=== PATIENT | female | born 1935 | race Caucasian/White ===

== ENCOUNTER → 2022-11-17 12:10 | Outpatient (CLI) | payer MEDICARE, SELFPAY ==
--- NOTE | ~2022-11-17 | XR_ITS ---
Left Knee Technique: AP, lateral, and sunrise views were obtained. Clinical History: Pain Findings: No fracture or dislocation is seen. There is advanced degenerative change of the lateral co mpartment, with joint space narrowing and articular surface remodeling. Moderate tricompartmental ost eophyte formation present. There are probable small loose bodies in the suprapatellar pouch. Possible additional loose bodies posteriorly in the joint. No joint effusion is seen. 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 Probable intra-articular loose bodies. Reviewed, dictated and finalized at location M. COVERER Impression: Moderate to advanced tricompartmental osteoarthritis, worst in the lateral comp artment. Probable intra-articular loose bodies.
--- NOTE | ~2022-11-17 | XR_ITS ---
Right Knee Technique: AP, lateral, and sunrise views were obtained. Clinical History: Pain Findings: No fracture or dislocation is seen. There is severe degenerative change of the lateral comp artment, with marked joint space narrowing and articular surface remodeling. Moderate patellofemoral and lateral joint line osteophytes are present. There is minimal degenerative change of the medial co mpartment. Soft tissues are unremarkable. No joint effusion is seen. Impression: Severe osteoarthritis of the lateral compartment, as detailed above. Moderate to severe patellofemoral compartment degenerative change. Minimal degenerative change of the medial compartment. Reviewed, dictated and finalized at location M. ER ENGINEER HELPER Impression: Severe osteoarthritis of the lateral compartment, as detailed above. Moderate to severe patellofemoral compartment degenerative change. Minimal degenerative change of the medial compartment.
== END ==
PROVIDERS: PCP Internal Medicine; Visit Provider Internal Medicine
DX: M17.0 Bilateral primary osteoarthritis of knee (principal)
CPT/HCPCS: 73564

== ENCOUNTER → 2022-11-23 10:18 | Outpatient (CLI) | payer MEDICARE, SELFPAY ==
--- NOTE | ~2022-11-23 | US_ITS ---
Duplex Sonography of the left extremity: Indication: Pain Findings: Sagittal and transverse B-mode images as well as color-flow imaging were performed on the l eft femoral and popliteal veins. B-mode examination was done without and with compression in the tra nsverse plane. There is good visualization of the common femoral, proximal profunda femoral, superfi cial femoral, greater saphenous, and popliteal veins. Normal flow was seen on color-flow imaging. No rmal compressibility was demonstrated. Left gastrocnemius, posterior tibial, and peroneal veins are a lso patent. Impression: No evidence of deep vein thrombosis involving the left lower extremity. Reviewed, dictated and finalized at location . COMPANY DRIVER Impression: No evidence of deep vein thrombosis involving the left lower extremity.
== END ==
PROVIDERS: PCP Internal Medicine; Visit Provider Internal Medicine
DX: M25.562 Pain in left knee (principal); M25.561 Pain in right knee
CPT/HCPCS: 93971

== ENCOUNTER 2023-06-21 16:29 | Outpatient (CLI) | payer MEDICARE, SELFPAY ==
--- NOTE | ~2023-06-21 | US_ITS ---
Duplex Sonography of the left extremity: Indication: Pain Findings: Sagittal and transverse B-mode images as well as color-flow imaging were performed on the l eft femoral and popliteal veins. B-mode examination was done without and with compression in the tra nsverse plane. There is good visualization of the common femoral, proximal profunda femoral, superfi cial femoral, greater saphenous, and popliteal veins. Normal flow was seen on color-flow imaging. No rmal compressibility was demonstrated. Visualized calf veins are also patent. Impression: No evidence of deep vein thrombosis involving the left lower extremity. Reviewed, dictated and finalized at location M. Impression: No evidence of deep vein thrombosis involving the left lower extremity.
== END 2023-06-21 16:30 | disposition home or self-care (01) ==
PROVIDERS: PCP Internal Medicine; Visit Provider Internal Medicine
DX: M79.605 Pain in left leg (principal)
CPT/HCPCS: 93971